=== PATIENT | female | born 1985 | race Two or more races ===

== ENCOUNTER 2024-07-14 07:05 | Emergency (ER) | payer OTHER ==
[~2024-07-14] VITALS: Ht 162.6 cm; Wt 127.0 kg
[2024-07-14] MEDS ORDERED: LOSARTAN POTASS50 MG (07:37)
[2024-07-14] MEDS ORDERED: 0.9 % SODIUM CHLORIDE 1,000 ML IV STA (08:28)
[2024-07-14 09:29] LABS: URINE APPEARANCE Cloudy; URINE BILIRRUBIN Negative (NEGATIVE); URINE BLOOD Negative; URINE COLOR Yellow; URINE GLUCOSE Negative (NEGATIVE); URINE KETONE Negative (NEGATIVE); URINE LEUKOCYTE Small; URINE NITRATE Negative; URINE PROTEIN Negative (NEGATIVE)
[2024-07-14 09:31] LABS: URINE BACTERIA 7462.8 uL (0.0-1933); URINE EPITHELIAL CELLS 100.6 uL (0.0-38.8); URINE RBC 2.9 uL (0.0-20.8); URINE WBC 60.1 uL (0.0-23.2)
[2024-07-14 09:34] LABS: HEMATOCRIT 23.8 % (36.0-45.00); MEAN CORPUSCULAR HGB CONC 29.6 g/dl (32.0-36.0); PLATELET COUNT 251 K/uL (150-450); RED BLOOD COUNT 4.18 M/uL (4.00-6.00); RED CELL DISTRIBUTION WIDTH 20.5 % (11.5-14.5)
[2024-07-14 09:38] LABS: URINE CAST 0.45 uL (0.0-1.40)
[2024-07-14 09:47] LABS: MEAN CELL VOLUME 56.8 fL (80.00-100.00); MEAN CORPUSCULAR HEMOGLOBIN 16.7 pg (27.00-32.0)
[2024-07-14 10:20] LABS: CALCIUM 8.7 mg/dL (8.5-10.1); CREATININE SERUM 0.7 mg/dL (0.55-1.02); GFR 94.68; POTASSIUM 4.08 mEq/L (3.5-5.1)
== END 2024-07-14 12:36 | disposition home or self-care (01) ==
LOC: ER 07:06
PROVIDERS: Emergency Medicine
DX: D64.9 Anemia, unspecified (principal); Z20.822 Contact with and (suspected) exposure to COVID-19; I10 Essential (primary) hypertension